=== PATIENT | female | born 1960 | race American Indian/Alaskan Native ===

== ENCOUNTER 2019-11-29 10:40 | Outpatient (CLI) | payer BC, OTHER ==
--- NOTE | 2019-11-29 16:14 | Magnetic Resonance Report ---
BILATERAL BREAST MR WITHOUT AND WITH GADOLINIUM INDICATION: Newly diagnosed right breast cancer. COMPARISONS: 09/27/2019 mammogram from [facility] [place] TECHNIQUE: Axial 1.0 mm T1 without, axial high-resolution 2.0 mm T2 and axial 1.0 mm dynamic vibrant high-resolution postcontrast T1 fat saturation sequences on a 1.5 Alia magnet. The examination was p erformed with an 8-channel dedicated [place] breast coil. Post-processing with CAD and subtraction was performed on an [employer] workstation. 19.0 cc of MultiHance was injected without incident for the c ontrast portion of the exam. Consent was obtained prior to the administration of the contrast. FINDINGS: RIGHT BREAST: Minimal background parenchymal enhancement. The known cancer is an irregular enhancing mass in the lower outer quadrant measuring 3.5 x 0.8 x 0.9 cm. It demonstrates relatively homogeneous enhancement, medium initial enhancement, 50% peak enhancement and 99% type I persistent waveform. No other mass or suspicious enhancement of the right breast. A 1.9 cm axillary tail lymph node has a sm all fatty hilum and suspicious morphology with heterogeneous central fat on the T2 sequence. Several right axillary lymph nodes have benign morphology. LEFT BREAST: Minimal background parenchymal enhancement. No mass or suspicious enhancement of the lef t breast. No suspicious left axillary or left internal mammary lymph nodes. IMPRESSION: 1. A 3.5 cm known right breast cancer and no additional suspicious lesion of either breast. 2. A suspicious right axillary tail lymph node. 3. Negative left breast. BI-RADS Category 6: Known cancer. A normal MRI does not exclude the presence of some forms of breast malignancy as literature reports s uggest that some forms of ductal carcinoma in situ or lobular carcinoma, particularly, may not be det ected on MRI. The sensitivity and specificity of MRI for cancers under 5 mm may be reduced. MRI does not replace the recommendation for annual conventional mammographic evaluation and should be used as an adjunct to mammography and physical examination as necessary. Signer Name: Jaret Huertas MD Signed: 11/29/2019 4:09 PM Workstation Name: [id number]
== END 2019-11-29 10:41 | disposition home or self-care (01) ==
LOC: SPVIMAG 10:40
PROVIDERS: ATTEND Surgery
DX: C50.311 Malignant neoplasm of lower-inner quadrant of right female breast (principal); N63.13 Unspecified lump in the right breast, lower outer quadrant; N64.89 Other specified disorders of breast
CPT/HCPCS: A9577; C8908; 77049